=== PATIENT | male | born 1980 | race Two or more races ===

== ENCOUNTER 2017-01-15 05:18 | Emergency (ER) | payer SELFPAY ==
[2017-01-15 05:26] VITALS: BP 143/93; BMI 28.2
[2017-01-15] MEDS ORDERED: DUONEB 0.5 MG/3 MG NEB ONE (05:43)
[2017-01-15] MEDS ORDERED: DUONEB 0.5 MG/3 MG ONE (05:45)
--- NOTE | 2017-01-15 05:46 | DR.GENAD ---
HPI - PCP Primary Care Physician: NFD - Complaint/Symptoms Chief Complaint Doctors Comments: chest pain, SOB, cough for 3-4 days Chief Complaint:: COUGH AND DIFFICULTY BREATHING - Nurses notes reviewed Nurses Notes Review: Yes - Source History Provided: Patient, Other - Mode of Arrival Mode of Arrival: Ambulatory - Timing Onset of Chief Complaint: 01/08/17 Came on: Gradually - Duration Duration: Intermittent Duration: Days - Severity Severity: Moderate - Associated Signs and Symptoms Associated Signs and Symptoms: cough, SOB, feeling weak and achy PMH - PMH Past Medical History: No Past Surgical History: No - Family History History of Family Medical Conditions: No - Social History Does patient currently use any type of tobacco product: No Have you used tobacco products in the last 12 months: No Type of Tobacco Use: None Does any household member use tobacco: No Alcohol Use: Occasionally Do you use any recreational Drugs:: No Lives With: Family Lives Where: Home - infectious screening In the last 2 months have you had wt loss of >10#?: NO Have you had fever, night sweats or hemotysis?: No Have you traveled outside the country in the last 6 months?: No Isolation: Standard ROS - Review of Systems Constitutional: Weakness Eyes: No Symptoms Reported ENTM: No Symptoms Reported Respiratoy: Non-Productive Cough, Moist Cough, Short of Breath Cardiovascular: Chest Pain Gastrointestinal/Abdominal: No Symptoms Reported Genitourinary: No Symptoms Reported Neurological: No Symptoms Reported Musculoskeletal: No Symptoms Reported, Right, Chest wall Integumentary: No Symptoms Reported Hematologic/Lymphatic: No Symptoms Reported Endocrine: No Symptoms Reported Psychiatric: No Symptoms Reported All Other Systems: Reviewed and Negative PE - Vital Signs Vitals: Temperature 98 F Pulse Rate 93 Respiratory Rate 18 Blood Pressure 143/93 O2 Sat by Pulse Oximetry 96 - General Limitations: No Limitations General Appearance: Alert, In No Apparent Distress - Head Head Exam: Normal Inspection - ENT ENT Exam: Mucous Membranes Moist Nose Exam: Normal Nose Exam Mouth Exam: Normal Inspection Throat Exam: Normal Inspection - Neck Neck Exam: Normal Inspection - Chest Chest Inspection: Symmetric Chest Wall Rise - Respiratory Respiratory Exam: Left Rhonchi, Left Decreased Breath Sounds, Lower Rhonchi, Lower Decreased Breath Sounds - Cardiovascular Cardiovascular Exam: Regular Rate, Normal Rhythm, Normal Heart Sounds - Abdominal Exam Abdominal Exam: Normal Inspection, Normal Bowel Sounds, Soft - Extremities Extremities Exam: Normal Inspection, Full ROM - Back Back Exam: Normal Inspection, Full ROM - Neurologic Neurological Exam: Alert, Oriented X3, CN II-XII Intact - Psychiatric Psychiatric Exam: Normal Affect, Normal Mood - Skin Skin Exam: Warm, Dry, Intact, Normal Color - Diagnosis Discharge Problem: Bronchitis, Pleurisy - Discharge Plan Disposition: HOME, SELF-CARE Condition: Stable - Follow ups/Referrals Follow ups/Referrals: NFD,None [Primary Care Provider] - 3 days - Instructions
[2017-01-15] MEDS ORDERED: DECADRON INJ IM ONE (06:00)
[2017-01-15] MEDS ORDERED: ZITHROMAX TAB 250 MG PO ONE ×2 (06:00→06:04)
[2017-01-15] MEDS ORDERED: TORADOL 60 MG VIAL IM ONE (06:02)
[2017-01-15] MEDS ORDERED: TORADOL 60 MG VIAL ONE (06:04)
[2017-01-15] MEDS ORDERED: DECADRON JET NEB NEB ONE (06:04)
[2017-01-15 06:20] LABS: BASOPHILS # (AUTO) 0.1 X10^3/uL (0.0-0.1); EOSINOPHILS # (AUTO) 0.7 x10^3/uL (0.0-0.2); EOSINOPHILS % (AUTO) 6.2 % (0.9-2.9); HEMATOCRIT 43.9 % (42.0-54.0); HEMOGLOBIN 15.5 g/dL (13.5-18.0); LYMPHOCYTES # (AUTO) 3.7 X10^3/uL (1.3-2.9); LYMPHOCYTES % (AUTO) 33.2 % (21.0-51.0); MEAN CORPUSCULAR HEMOGLOBIN 29.7 pg (27.0-34.0); MEAN CORPUSCULAR HGB CONC 35.2 g/dL (33.0-35.0); MEAN CORPUSCULAR VOLUME 84.3 fL (80.0-100.0); MEAN PLATELET VOLUME 8.7 fL (7.4-11.0); MONOCYTES # (AUTO) 0.6 x10^3/uL (0.3-0.8); MONOCYTES % (AUTO) 5.5 % (0.0-13.0); NEUTROPHILS % (AUTO) 54.1 % (42.0-75.0); PLATELET COUNT 191 X10^3/uL (150.0-450.0); RED BLOOD COUNT 5.21 X10^6/uL (4.7-6.0); RED CELL DISTRIBUTION WIDTH 12.4 % (11.6-16.5); WHITE BLOOD COUNT 11.1 X10^3/uL (3.6-10.0)
[2017-01-15 06:29] LABS: ALANINE AMINOTRANSFERASE 39 Units/L (12-78); ALBUMIN 3.6 g/dL (3.4-5.0); ALKALINE PHOSPHATASE 95 Units/L (46-116); ASPARTATE AMINO TRANSFERASE 24 Units/L (15-37); BLOOD UREA NITROGEN 17 mg/dL (7-18); CALCIUM 8.5 mg/dL (8.5-10.1); CARBON DIOXIDE 23.5 mmol/L (21-32); CHLORIDE 107 mmol/L (98-107); COR NA(FOR HYPERGLY) 143 mmol/L (136-145); CREATININE 1.04 mg/dL (0.70-1.30); GLUCOSE 113 mg/dL (65-99); SODIUM 143 mmol/L (136-145); TOTAL PROTEIN 7.4 g/dL (6.4-8.2); eGFR BLACK RACES > 60 (>60); eGFR NON BLACK RACES > 60 (>60)
--- NOTE | 2017-01-15 06:39 | RAD ---
EXAM: Chest X-ray INDICATION: Chest pain COMPARISION: No prior TECHNIQUE: PA and Lat, 2 view FINDINGS: The lungs are clear and the lung volumes are within normal limits. No pleural effusion or pneumothor ax. The cardiac silhouette and mediastinum are normal. The regional skeleton is intact. IMPRESSION: Normal Chest X-Ray Reported By:
== END 2017-01-15 06:45 | disposition home or self-care (01) ==
LOC: ER 05:18
DX: J40 Bronchitis, not specified as acute or chronic (principal); R09.1 Pleurisy
CPT/HCPCS: 36415; 71020; 80053; 85025; 93005; 93010; 94640; 96372; 99283; Q0144; J1885; J7620

== ENCOUNTER 2023-11-04 12:25 | Inpatient (IN) ==
--- NOTE | 2023-11-04 12:49 | DR.BITE ---
HPI Time Seen Time Seen by Provider: 11/04/23 12:49 PCP Primary Care Physician: Dr. Flores Complaint/Symptoms Chief Complaint Doctor Comments: 43-year-old male presents for evaluation. Received a bite, unknown source, to the right lower leg 3 days ago.. Startedd draining the next day. Saw his PCP yesterday, placed on double antibiotics. + worsenin today. + pain, RLE, does not radiate. + worse with palpation, movement. Nothing makes it better. + fever, chills, nausea today. No URI symptoms, no bowel/bladder issues. Not a diabetic. Chief Complaint:: Pt states the he was bit by something but unsure of what on Wednesday on the outside of the right knee. The area had a moderate amount of purulent drainage Wednesday and Wednesday but none since then. Pt has had progressively worsening swelling, redness and pain at the site. Pt has also had fever, chills, nausea with no vomiting. Self Treatment fo Chief Complaint: Pt was seen by pcp yesterday and started on Amoxicillin 454mg po daily x 10 days and Bactrim DS 1 tab po BID x 10 days. COVID-19 Coronavirus risk:travel/contact w/high risk person: No Has patient experienced Coronavirus symptoms: No Nurses notes reviewed Nurses Notes Review: Yes Source History Provided: Patient Mode of Arrival Mode of Arrival: Wheelchair Timing Onset of Chief Complaint: 11/01/23 PMH PMH Past Medical History: No Past Surgical History: Yes Surgical History: Appendectomy and Cholecystectomy Family History History of Family Medical Conditions: Yes Family Medical History: [place], Coronary Artery Disease and Hypertension Social History Does patient currently use any type of tobacco product: No Have you used tobacco products in the last 12 months: No Type of Tobacco Use: None Does any household member use tobacco: No Alcohol Use: None Do you use any recreational Drugs:: No Lives With: Spouse Lives Where: Home Travel Risk Coronavirus risk:travel/contact w/high risk person: No Has patient experienced Coronavirus symptoms: No Infectious screening In the last 2 months have you had wt loss of >10#?: NO Have you had fever, night sweats or hemotysis?: No Have you traveled outside the country in the last 6 months?: No Isolation: Standard ROS Review of Systems Constitutional: Chills and Fever Eyes: No Symptoms Reported ENTM: No Symptoms Reported Respiratoy: No Symptoms Reported Cardiovascular: No Symptoms Reported Gastrointestinal/Abdominal: No Symptoms Reported Genitourinary: No Symptoms Reported Neurological: No Symptoms Reported Musculoskeletal: See HPI Integumentary: See HPI All Other Systems: Reviewed and Negative PE Vital Signs Vital Signs: Temp Pulse Resp BP Pulse Ox O2 Del Method 11/04/23 14:15 88 27 H 98 11/04/23 14:00 89 24 97 11/04/23 13:45 92 H 27 H 97 11/04/23 13:30 100 H 30 H 97 11/04/23 13:15 103 H 22 98 11/04/23 13:00 142/83 11/04/23 13:00 112 H 23 97 11/04/23 12:56 110 H 29 H 97 11/04/23 13:04 18 11/04/23 12:34 99.1 F 123 H 20 152/126 94 L Room Air 11/03/23 10:22 122/77 Constitutional General Appearance: Alert and In No Apparent Distress Eyes Eye exam: PERRL and EOMI ENT ENT Exam: Mucous Membranes Moist Neck Neck Exam: Normal Inspection Respiratory Respiratory Exam: Normal Lung Sounds Bilat; negative Accessory Muscle Use or Respiratory Distress Cardiovascular Cardiovascular Exam: Regular Rate, Normal Rhythm and Normal Heart Sounds Abdominal Exam Abdominal Exam: Soft and Tenderness (from recent cholecystectomy) Neurologic Neurological Exam: Alert, Oriented X3 and CN II-XII Intact; negative Motor Sensory Deficit Skin Skin Exam: Warm and Dry Other Exam Other Exam: RLE - + 1 cm wound of center, + surrounding erythema, induration, tenderness. Distal NV intact. COURSE Treatment Treatment: 43-year-old male with a rapidly worsening infection of his right lower leg. Antibiotics since yesterday. Spiked a fever and chills today. Nothing draining from the wound at present, unable to get a wound culture. Workup initiated. Patient given IV fluids. Patient has an elevated white count, 18,400. The CMP is normal. Lactic acid slightly elevated at 2.1. Blood cultures were obtained. X-ray of the area done, no obvious foreign bodies, no gas formation. Patient was given IV Zosyn/vancomycin here. Discussed with his primary care provider, Dr. Flores, accepts admission. ROR Labs Reviewed Laboratory Results Reviewed?: Yes 11/04/23 13:00 11/04/23 13:00 Laboratory: WBC 18.4 X10^3/uL (3.6-10.0) H 11/04/23 13:00 RBC 4.96 X10^6/uL (4.7-6.0) 11/04/23 13:00 Hgb 14.2 g/dL (13.5-18.0) 11/04/23 13:00 Hct 41.5 % (42.0-54.0) L 11/04/23 13:00 MCV 83.7 fL (80.0-100.0) 11/04/23 13:00 MCH 28.6 pg (27.0-34.0) 11/04/23 13:00 MCHC 34.2 g/dL (33.0-35.0) 11/04/23 13:00 RDW 13.6 % (11.6-16.5) 11/04/23 13:00 Plt Count 189 X10^3/uL (150.0-450.0) 11/04/23 13:00 MPV 8.4 fL (7.4-11.0) 11/04/23 13:00 Neut % (Auto) 81.2 % (42.0-75.0) H 11/04/23 13:00 Lymph % (Auto) 10.4 % (21.0-51.0) L 11/04/23 13:00 Swisher % (Auto) 7.1 % (0.0-13.0) 11/04/23 13:00 Eos % (Auto) 0.8 % (0.9-2.9) L 11/04/23 13:00 Baso % (Auto) 0.5 % (0.2-1.0) 11/04/23 13:00 Neut # (Auto) 15.0 x10^3/uL (2.2-4.8) H 11/04/23 13:00 Lymph # (Auto) 1.9 X10^3/uL (1.3-2.9) 11/04/23 13:00 Swisher # (Auto) 1.3 x10^3/uL (0.3-0.8) H 11/04/23 13:00 Eos # (Auto) 0.1 x10^3/uL (0.0-0.2) 11/04/23 13:00 Baso # (Auto) 0.1 X10^3/uL (0.0-0.1) 11/04/23 13:00 Absolute Nucleated RBC 0.1 /100WBC 11/04/23 13:00 Sodium 137 mmol/L (136-145) 11/04/23 13:00 Corrected Sodium 138 mmol/L (136-145) 11/04/23 13:00 Potassium 3.6 mmol/L (3.5-5.1) 11/04/23 13:00 Chloride 102 mmol/L (98-107) 11/04/23 13:00 Carbon Dioxide 22.3 mmol/L (21-32) 11/04/23 13:00 BUN 13 mg/dL (7-18) 11/04/23 13:00 Creatinine 1.15 mg/dL (0.70-1.30) 11/04/23 13:00 Est GFR (MDRD) Af Amer > 60 (>60) 11/04/23 13:00 Est GFR (MDRD) Non-Af > 60 (>60) 11/04/23 13:00 Glucose 140 mg/dL (65-99) H 11/04/23 13:00 Lactic Acid 2.1 mmol/L (0.4-2.0) H 11/04/23 13:00 Calcium 8.7 mg/dL (8.5-10.1) 11/04/23 13:00 Corrected Calcium 9.4 mg/dL (8.5-10.1) 11/04/23 13:00 Total Bilirubin 0.70 mg/dL (0.2-1.0) 11/04/23 13:00 AST 10 Units/L (15-37) L 11/04/23 13:00 ALT 16 Units/L (12-78) 11/04/23 13:00 Alkaline Phosphatase 95 Units/L (46-116) 11/04/23 13:00 Total Protein 7.3 g/dL (6.4-8.2) 11/04/23 13:00 Albumin 3.1 g/dL (3.4-5.0) L 11/04/23 13:00 Globulin 4.2 g/dL (2.5-4.5) 11/04/23 13:00 Albumin/Globulin Ratio 0.7 Ratio (1.1-2.1) L 11/04/23 13:00 Evaded white count, 18,000 Opioid Opioid Risk Tool Age ([place] box if 16-45): Yes History of Preadolescent Sexual Abuse: No Total: 1 Total Score Risk Category: Low Risk Copyright: Sandeep DOE predicting aberrant behaviors Discharge Plan Diagnosis Discharge Problem: Cellulitis of right lower extremity Discharge Plan Patient Disposition: 09 ADMITTED INPATIENT Condition: Stable
[2023-11-04] MEDS: ZOFRAN INJ 4 MG VIAL IVP ONE (13:03)
[2023-11-04] MEDS: TORADOL 30 MG VIAL IVP ONE (13:04)
[2023-11-04] MEDS: NS 1,000 ML IV 1,000 ML IV ONE ×2 (13:07→14:06)
[2023-11-04 13:18] LABS: BASOPHILS # (AUTO) 0.1 X10^3/uL (0.0-0.1); BASOPHILS % (AUTO) 0.5 % (0.2-1.0); EOSINOPHILS # (AUTO) 0.1 x10^3/uL (0.0-0.2); EOSINOPHILS % (AUTO) 0.8 % (0.9-2.9); HEMATOCRIT 41.5 % (42.0-54.0); HEMOGLOBIN 14.2 g/dL (13.5-18.0); LYMPHOCYTES # (AUTO) 1.9 X10^3/uL (1.3-2.9); LYMPHOCYTES % (AUTO) 10.4 % (21.0-51.0); MEAN CORPUSCULAR HEMOGLOBIN 28.6 pg (27.0-34.0); MEAN CORPUSCULAR HGB CONC 34.2 g/dL (33.0-35.0); MEAN CORPUSCULAR VOLUME 83.7 fL (80.0-100.0); MEAN PLATELET VOLUME 8.4 fL (7.4-11.0); MONOCYTES # (AUTO) 1.3 x10^3/uL (0.3-0.8); MONOCYTES % (AUTO) 7.1 % (0.0-13.0); NEUTROPHILS % (AUTO) 81.2 % (42.0-75.0); PLATELET COUNT 189 X10^3/uL (150.0-450.0); RED BLOOD COUNT 4.96 X10^6/uL (4.7-6.0); RED CELL DISTRIBUTION WIDTH 13.6 % (11.6-16.5); WHITE BLOOD COUNT 18.4 X10^3/uL (3.6-10.0)
[2023-11-04 13:34] LABS: ALANINE AMINOTRANSFERASE 16 Units/L (12-78); ALBUMIN 3.1 g/dL (3.4-5.0); ALKALINE PHOSPHATASE 95 Units/L (46-116); ASPARTATE AMINO TRANSFERASE 10 Units/L (15-37); BLOOD UREA NITROGEN 13 mg/dL (7-18); CALCIUM 8.7 mg/dL (8.5-10.1); CARBON DIOXIDE 22.3 mmol/L (21-32); CHLORIDE 102 mmol/L (98-107); COR CA(FOR HYPOALB) 9.4 mg/dL (8.5-10.1); COR NA(FOR HYPERGLY) 138 mmol/L (136-145); CREATININE 1.15 mg/dL (0.70-1.30); GLUCOSE 140 mg/dL (65-99); POTASSIUM 3.6 mmol/L (3.5-5.1); SODIUM 137 mmol/L (136-145); TOTAL PROTEIN 7.3 g/dL (6.4-8.2); eGFR NON BLACK RACES > 60 (>60)
[2023-11-04] MEDS ORDERED: NS 250 ML IV 25 ML IV PRN ×2 (13:50→15:43)
[2023-11-04] MEDS: ZOSYN VIAL 3.375 GRAMS 3.375 G in NS 100 ML IV 100 ML IV SCH (14:01)
[2023-11-04] MEDS: VANCOMYCIN IV *PREMIX 1 G/200 ML BAG 1 G/200 ML PIGGYBACK IV SCH (14:03)
--- NOTE | 2023-11-04 14:53 | RAD ---
EXAM: LOWER LEG, TIB/FIB RIGHT HISTORY: sore/redness/swelling rt proximal lateral knee/lower leg x 3 days; COMPARISON: None available. FINDINGS: Soft tissue swelling. No radiopaque foreign body or soft tissue emphysema. No acute osseous finding . Arterial calcifications. IMPRESSION: Soft tissue swelling without acute osseous finding or radiopaque foreign body. THIS IS AN ELECTRONICALLY VERIFIED FINAL REPORT 11/04/2023 2:49 PM - Electronically signed by Nabeel Palma MD
[2023-11-04] MEDS: VANCOMYCIN IV *PREMIX 1 G/200 ML BAG 1 G/200 ML PIGGYBACK IV ONE (15:59)
[2023-11-04 16:10] VITALS: BMI 33.7
[2023-11-04] MEDS: D5 1/2 NS 1,000 ML 1,000 ML IV SCH (16:47)
[2023-11-04] MEDS: K-DUR TAB 20 MEQ PO ONE (16:47)
[2023-11-04] MEDS: VANCOMYCIN IV *PREMIX 1.5 G/300 ML BAG 1.5 G/300 ML PIGGYBACK IV SCH (20:42)
[2023-11-05 06:16] LABS: BASOPHILS # (AUTO) 0.1 X10^3/uL (0.0-0.1); BASOPHILS % (AUTO) 0.4 % (0.2-1.0); EOSINOPHILS # (AUTO) 0.2 x10^3/uL (0.0-0.2); EOSINOPHILS % (AUTO) 1.7 % (0.9-2.9); HEMATOCRIT 38.1 % (42.0-54.0); HEMOGLOBIN 12.7 g/dL (13.5-18.0); LYMPHOCYTES # (AUTO) 1.8 X10^3/uL (1.3-2.9); LYMPHOCYTES % (AUTO) 13.2 % (21.0-51.0); MEAN CORPUSCULAR HEMOGLOBIN 28.3 pg (27.0-34.0); MEAN CORPUSCULAR HGB CONC 33.4 g/dL (33.0-35.0); MEAN CORPUSCULAR VOLUME 84.8 fL (80.0-100.0); MEAN PLATELET VOLUME 8.4 fL (7.4-11.0); NEUTROPHILS # (AUTO) 10.6 x10^3/uL (2.2-4.8); NEUTROPHILS % (AUTO) 77.7 % (42.0-75.0); PLATELET COUNT 163 X10^3/uL (150.0-450.0); RED BLOOD COUNT 4.49 X10^6/uL (4.7-6.0); RED CELL DISTRIBUTION WIDTH 13.5 % (11.6-16.5); WHITE BLOOD COUNT 13.6 X10^3/uL (3.6-10.0)
[2023-11-05 06:32] LABS: ALANINE AMINOTRANSFERASE 16 Units/L (12-78); ALBUMIN 2.5 g/dL (3.4-5.0); ALKALINE PHOSPHATASE 78 Units/L (46-116); ASPARTATE AMINO TRANSFERASE 12 Units/L (15-37); BLOOD UREA NITROGEN 8 mg/dL (7-18); CARBON DIOXIDE 20.8 mmol/L (21-32); CHLORIDE 107 mmol/L (98-107); COR CA(FOR HYPOALB) 9.2 mg/dL (8.5-10.1); GLUCOSE 110 mg/dL (65-99); MAGNESIUM 2.2 mg/dL (2.0-2.9); POTASSIUM 4.1 mmol/L (3.5-5.1); SODIUM 139 mmol/L (136-145); TOTAL PROTEIN 6.2 g/dL (6.4-8.2); eGFR NON BLACK RACES > 60 (>60)
[2023-11-05] MEDS: VANCOMYCIN HCL IV ONE (07:55)
[2023-11-05] MEDS: ZOSYN VIAL 3.375 GRAMS 3.375 G in NS 100 ML IV 100 ML IV SCH (07:57)
[2023-11-05] MEDS: VANCOMYCIN IV *PREMIX 1 G/200 ML BAG 1 G/200 ML PIGGYBACK IV SCH (07:58)
[2023-11-05] MEDS: CONSULT PHARMACY - POTASSIUM & MAGNESIUM XX SCH (07:59)
[2023-11-05] MEDS: TORADOL TAB PO PRN (08:38)
--- NOTE | 2023-11-05 12:57 | DR.PROGNOT ---
HOSPITAL PROGRESS NOTE Progress Note for Day of: Progress Note Date: 11/05/23 Chief Complaint Chief Complaint: Still complaining of pain right knee, mild drainage. Initial culture report showed gram-positive cocci coag positive. Having low-grade fever. White count is down 13,000 Past Medical Family Social History Past Med/Fam/Surg Hx: No changes since H&P Allergies: Allergies No Known Drug Allergies Allergy (Verified 11/03/23 10:24) Vital Signs Vital Signs: Vital Signs Temperature 98.4 F Temperature 98.3 F Pulse Rate [Left Brachial] 76 Pulse Rate [Left Brachial] 91 Respiratory Rate 18 Respiratory Rate 20 Respiratory Rate 20 Respiratory Rate 18 Blood Pressure [Left Arm] 112/59 Blood Pressure [Left Arm] 124/71 O2 Sat by Pulse Oximetry 98 O2 Sat by Pulse Oximetry 97 Physical Exam Oriented: Normal Eyes: Normal Throat: Normal Cardiovascular: Normal Skin: Other (Cellulitis of the right knee area is less today but still extending about 8 cm from the lateral aspect of the knee. No necrosis or further abscess formation.) Speech Pattern: Clear and Appropriate Laboratory and Diagnostics 11/05/23 06:02 11/05/23 06:02 Labs: 11/04/23 17:10 Knee - Right Wound Gram Stain - Final 11/04/23 17:10 Knee - Right Wound Culture - Preliminary Laboratory WBC 13.6 X10^3/uL (3.6-10.0) H 11/05/23 06:02 RBC 4.49 X10^6/uL (4.7-6.0) L 11/05/23 06:02 Hgb 12.7 g/dL (13.5-18.0) L 11/05/23 06:02 Hct 38.1 % (42.0-54.0) L 11/05/23 06:02 MCV 84.8 fL (80.0-100.0) 11/05/23 06:02 MCH 28.3 pg (27.0-34.0) 11/05/23 06:02 MCHC 33.4 g/dL (33.0-35.0) 11/05/23 06:02 RDW 13.5 % (11.6-16.5) 11/05/23 06:02 Plt Count 163 X10^3/uL (150.0-450.0) 11/05/23 06:02 MPV 8.4 fL (7.4-11.0) 11/05/23 06:02 Neut % (Auto) 77.7 % (42.0-75.0) H 11/05/23 06:02 Lymph % (Auto) 13.2 % (21.0-51.0) L 11/05/23 06:02 Ellis % (Auto) 7.0 % (0.0-13.0) 11/05/23 06:02 Eos % (Auto) 1.7 % (0.9-2.9) 11/05/23 06:02 Baso % (Auto) 0.4 % (0.2-1.0) 11/05/23 06:02 Neut # (Auto) 10.6 x10^3/uL (2.2-4.8) H 11/05/23 06:02 Lymph # (Auto) 1.8 X10^3/uL (1.3-2.9) 11/05/23 06:02 Ellis # (Auto) 1.0 x10^3/uL (0.3-0.8) H 11/05/23 06:02 Eos # (Auto) 0.2 x10^3/uL (0.0-0.2) 11/05/23 06:02 Baso # (Auto) 0.1 X10^3/uL (0.0-0.1) 11/05/23 06:02 Absolute Nucleated RBC 0.0 /100WBC 11/05/23 06:02 Sodium 139 mmol/L (136-145) 11/05/23 06:02 Corrected Sodium TNP 11/05/23 06:02 Potassium 4.1 mmol/L (3.5-5.1) 11/05/23 06:02 Chloride 107 mmol/L (98-107) 11/05/23 06:02 Carbon Dioxide 20.8 mmol/L (21-32) L 11/05/23 06:02 BUN 8 mg/dL (7-18) 11/05/23 06:02 Creatinine 0.90 mg/dL (0.70-1.30) 11/05/23 06:02 Est GFR (MDRD) Af Amer > 60 (>60) 11/05/23 06:02 Est GFR (MDRD) Non-Af > 60 (>60) 11/05/23 06:02 Glucose 110 mg/dL (65-99) H 11/05/23 06:02 Lactic Acid 1.5 mmol/L (0.4-2.0) 11/04/23 15:00 Calcium 8.0 mg/dL (8.5-10.1) L 11/05/23 06:02 Corrected Calcium 9.2 mg/dL (8.5-10.1) 11/05/23 06:02 Magnesium 2.2 mg/dL (2.0-2.9) 11/05/23 06:02 Total Bilirubin 0.50 mg/dL (0.2-1.0) 11/05/23 06:02 AST 12 Units/L (15-37) L 11/05/23 06:02 ALT 16 Units/L (12-78) 11/05/23 06:02 Alkaline Phosphatase 78 Units/L (46-116) 11/05/23 06:02 Total Protein 6.2 g/dL (6.4-8.2) L 11/05/23 06:02 Albumin 2.5 g/dL (3.4-5.0) L 11/05/23 06:02 Globulin 3.7 g/dL (2.5-4.5) 11/05/23 06:02 Albumin/Globulin Ratio 0.7 Ratio (1.1-2.1) L 11/05/23 06:02 Assessment and Plan 1: Cellulitis left knee with abscess formation status post debridement. Cultures showed staph coag positive. Same IV vancomycin till final culture report is back. Problem Patient Problems: Patient Problems Cellulitis of right lower extremity (Acute) L03.115
[2023-11-05] MEDS: TORADOL TAB PO SCH (14:18)
[2023-11-05] MEDS ORDERED: BACTROBAN TOPICAL OINT ONE (17:10)
[2023-11-05] MEDS: BACTROBAN TOPICAL OINT TOP SCH (18:15)
[2023-11-05] MEDS: PHARMACY COMMENT IV ONE (20:48)
[2023-11-05 21:06] LABS: CREATININE 0.94 mg/dL (0.70-1.30); VANCOMYCIN,TROUGH 7.4 ug/mL (15-20)
[2023-11-05] MEDS: VANCOMYCIN IV *PREMIX 1.75 G/350 ML BAG 1.75 G/350 ML PIGGYBACK IV SCH (21:45)
[2023-11-06 05:20] LABS: BASOPHILS % (AUTO) 0.4 % (0.2-1.0); EOSINOPHILS # (AUTO) 0.3 x10^3/uL (0.0-0.2); EOSINOPHILS % (AUTO) 3.6 % (0.9-2.9); HEMATOCRIT 36.2 % (42.0-54.0); HEMOGLOBIN 12.2 g/dL (13.5-18.0); LYMPHOCYTES # (AUTO) 1.5 X10^3/uL (1.3-2.9); LYMPHOCYTES % (AUTO) 18.3 % (21.0-51.0); MEAN CORPUSCULAR HEMOGLOBIN 28.5 pg (27.0-34.0); MEAN CORPUSCULAR HGB CONC 33.6 g/dL (33.0-35.0); MEAN CORPUSCULAR VOLUME 84.6 fL (80.0-100.0); MEAN PLATELET VOLUME 8.7 fL (7.4-11.0); MONOCYTES # (AUTO) 0.6 x10^3/uL (0.3-0.8); MONOCYTES % (AUTO) 6.9 % (0.0-13.0); NEUTROPHILS # (AUTO) 5.9 x10^3/uL (2.2-4.8); NEUTROPHILS % (AUTO) 70.8 % (42.0-75.0); PLATELET COUNT 180 X10^3/uL (150.0-450.0); RED BLOOD COUNT 4.27 X10^6/uL (4.7-6.0); RED CELL DISTRIBUTION WIDTH 13.6 % (11.6-16.5); WHITE BLOOD COUNT 8.4 X10^3/uL (3.6-10.0)
[2023-11-06 05:29] LABS: ALANINE AMINOTRANSFERASE 32 Units/L (12-78); ALBUMIN 2.3 g/dL (3.4-5.0); ALKALINE PHOSPHATASE 81 Units/L (46-116); ASPARTATE AMINO TRANSFERASE 21 Units/L (15-37); BLOOD UREA NITROGEN 8 mg/dL (7-18); CARBON DIOXIDE 22.6 mmol/L (21-32); CHLORIDE 110 mmol/L (98-107); COR CA(FOR HYPOALB) 9.4 mg/dL (8.5-10.1); COR NA(FOR HYPERGLY) 142 mmol/L (136-145); CREATININE 0.84 mg/dL (0.70-1.30); GLUCOSE 116 mg/dL (65-99); POTASSIUM 3.9 mmol/L (3.5-5.1); SODIUM 142 mmol/L (136-145); TOTAL PROTEIN 5.9 g/dL (6.4-8.2); eGFR NON BLACK RACES > 60 (>60)
--- NOTE | 2023-11-06 08:32 | DR.H&P ---
H&P History & Physical for Day of: H&P Date: 11/04/23 Chief Complaint Chief Complaint: right leg pain, redness, and swelling Allergies Allergies Allergy/AdvReac Type Severity Reaction Status Date / Time No Known Drug Allergies Allergy Verified 11/03/23 10:24 History of Present Illness History of Present Illness: Pt is a 43 year old male presenting with worsening cellulitis of the right lower leg after receiving a bite from an unknown insect. Pt was bitten over a week ago and reports gradual worsening of redness and swelling. He states that area of bite has some discharge. He failed outpatient treatment. Denies fevers, but reports feeling some chills. Labs/imaging: Wbc 13.6, Hgb 12.7, Plt 163, Na 139, K 4.1, Creatinine 0.90, glucose 110, Wound/blood culture pending. XR tib/fib was obtained that revealed: Soft tissue swelling without acute osseous finding or radiopaque foreign body. Pt was admitted for cellulitis and abscess. He was started on IV antibiotics Vancomycin and Zosyn. IVF, General surgery was consulted-Dr Monet, follow recommendations. Otherwise, continue current treatment. Continue to monitor and follow up labs/imaging. Past Surgical History Surgical History: Appendectomy and Cholecystectomy Family History Family Medical History: [place] and Hypertension Social History Does patient currently use any type of tobacco product: No Have you used tobacco products in the last 12 months: No Type of Tobacco Use: None Does any household member use tobacco: No Alcohol Use: None Drug Use: None Medications Home Medications: Home Medications Medication Instructions Recorded Confirmed Type amoxicillin 400 mg/5 mL oral 454 mg PO DAILY 11/04/23 11/04/23 History suspension Labs 11/06/23 04:10 11/06/23 04:10 Labs: 11/04/23 17:10 Knee - Right Wound Gram Stain - Final 11/04/23 17:10 Knee - Right Wound Culture - Preliminary Laboratory WBC 8.4 X10^3/uL (3.6-10.0) 11/06/23 04:10 RBC 4.27 X10^6/uL (4.7-6.0) L 11/06/23 04:10 Hgb 12.2 g/dL (13.5-18.0) L 11/06/23 04:10 Hct 36.2 % (42.0-54.0) L 11/06/23 04:10 MCV 84.6 fL (80.0-100.0) 11/06/23 04:10 MCH 28.5 pg (27.0-34.0) 11/06/23 04:10 MCHC 33.6 g/dL (33.0-35.0) 11/06/23 04:10 RDW 13.6 % (11.6-16.5) 11/06/23 04:10 Plt Count 180 X10^3/uL (150.0-450.0) 11/06/23 04:10 MPV 8.7 fL (7.4-11.0) 11/06/23 04:10 Neut % (Auto) 70.8 % (42.0-75.0) 11/06/23 04:10 Lymph % (Auto) 18.3 % (21.0-51.0) L 11/06/23 04:10 Carter % (Auto) 6.9 % (0.0-13.0) 11/06/23 04:10 Eos % (Auto) 3.6 % (0.9-2.9) H 11/06/23 04:10 Baso % (Auto) 0.4 % (0.2-1.0) 11/06/23 04:10 Neut # (Auto) 5.9 x10^3/uL (2.2-4.8) H 11/06/23 04:10 Lymph # (Auto) 1.5 X10^3/uL (1.3-2.9) 11/06/23 04:10 Carter # (Auto) 0.6 x10^3/uL (0.3-0.8) 11/06/23 04:10 Eos # (Auto) 0.3 x10^3/uL (0.0-0.2) H 11/06/23 04:10 Baso # (Auto) 0.0 X10^3/uL (0.0-0.1) 11/06/23 04:10 Absolute Nucleated RBC 0.0 /100WBC 11/06/23 04:10 Sodium 142 mmol/L (136-145) 11/06/23 04:10 Corrected Sodium 142 mmol/L (136-145) 11/06/23 04:10 Potassium 3.9 mmol/L (3.5-5.1) 11/06/23 04:10 Chloride 110 mmol/L (98-107) H 11/06/23 04:10 Carbon Dioxide 22.6 mmol/L (21-32) 11/06/23 04:10 BUN 8 mg/dL (7-18) 11/06/23 04:10 Creatinine 0.84 mg/dL (0.70-1.30) 11/06/23 04:10 Est GFR (MDRD) Af Amer > 60 (>60) 11/06/23 04:10 Est GFR (MDRD) Non-Af > 60 (>60) 11/06/23 04:10 Glucose 116 mg/dL (65-99) H 11/06/23 04:10 Lactic Acid 1.5 mmol/L (0.4-2.0) 11/04/23 15:00 Calcium 8.0 mg/dL (8.5-10.1) L 11/06/23 04:10 Corrected Calcium 9.4 mg/dL (8.5-10.1) 11/06/23 04:10 Magnesium 2.2 mg/dL (2.0-2.9) 11/05/23 06:02 Total Bilirubin 0.30 mg/dL (0.2-1.0) 11/06/23 04:10 AST 21 Units/L (15-37) 11/06/23 04:10 ALT 32 Units/L (12-78) 11/06/23 04:10 Alkaline Phosphatase 81 Units/L (46-116) 11/06/23 04:10 Total Protein 5.9 g/dL (6.4-8.2) L 11/06/23 04:10 Albumin 2.3 g/dL (3.4-5.0) L 11/06/23 04:10 Globulin 3.6 g/dL (2.5-4.5) 11/06/23 04:10 Albumin/Globulin Ratio 0.6 Ratio (1.1-2.1) L 11/06/23 04:10 Vancomycin Trough 7.4 ug/mL (15-20) L 11/05/23 20:38 Review of Systems Constitutional: Chills Eyes: No Symptoms Reported ENT: No Symptoms Reported Respiratory: No Symptoms Reported Cardiovascular: No Symptoms Reported Gastrointestinal: No Symptoms Reported Genitourinary: No Symptoms Reported Musculoskeletal: No Symptoms Reported Skin: Other (erythema and edema RLE) Neurological: No Symptoms Reported Physical Exam Vital Signs: Vital Signs Temperature 97.7 F Temperature 97.6 F Pulse Rate [Left Brachial] 88 Pulse Rate [Left Brachial] 73 Respiratory Rate 20 Respiratory Rate 20 Respiratory Rate 20 Respiratory Rate 20 Blood Pressure [Left Arm] 114/71 Blood Pressure [Left Arm] 113/55 O2 Sat by Pulse Oximetry 98 O2 Sat by Pulse Oximetry 100 Oriented: Normal Eyes: Normal Ear: Normal Nose: Normal Throat: Normal Respiratory: Clear Throughout Cardiovascular: Normal : Normal Auscultation: Bowel Sounds: Normal Palpation: Normal Tenderness: Normal Skin: Other (erythema and edema of RLE) Musculoskeletal: Normal Psychiatric: Normal Mood Description: Calm and Appropriate Affect: Normal Speech Pattern: Clear and Appropriate Assessment/Plan (1) Cellulitis of right lower extremity: Status: Acute Plan: IV antibiotics Review H&P Reviewed: Yes Patient was examined?: Yes
--- NOTE | 2023-11-06 08:38 | PCM.PROG ---
Progress Note Progress Note for Day of Date of Exam: 11/05/23 Subjective Subjective: Pt is a 43 year old male admitted for cellulitis of the right lower leg after receiving a bite from an unknown insect. This morning he reports some improvement in his redness and swelling. No acute events overnight. Labs/imaging: Wbc 13.6, Hgb 12.7, Plt 163, Na 139, K 4.1, Creatinine 0.90, g lucose 110, Wound culture prelim positive for coagulase positive staph. Blood culture pending. He is currently receiving IV antibiotics Vancomycin and Zosyn. IVF, General surgery was consulted-Dr Monet, follow recommendations. Otherwise, continue current treatment. Continue to monitor and follow up labs/imaging. Past Medical Family Social History Past Med/Fam/Surg Hx: No changes since H&P Allergies: Allergies No Known Drug Allergies Allergy (Verified 11/03/23 10:24) Review of Systems ROS changes noted: see HPI Vital Signs and I&O's Vital Signs: Vital Signs Temperature 97.7 F Temperature 97.6 F Pulse Rate [Left Brachial] 88 Pulse Rate [Left Brachial] 73 Respiratory Rate 20 Respiratory Rate 20 Respiratory Rate 20 Respiratory Rate 20 Blood Pressure [Left Arm] 114/71 Blood Pressure [Left Arm] 113/55 O2 Sat by Pulse Oximetry 98 O2 Sat by Pulse Oximetry 100 Intake and Output: Intake & Output 11/03/23 11/04/23 11/05/23 11/06/23 23:59 23:59 23:59 23:59 Intake Total 2215 / 2215 2690 / 2690 Balance 2215 / 2215 2690 / 2690 Physical Exam Oriented: Normal Eyes: Normal Ear: Normal Nose: Normal Throat: Normal Respiratory: Normal Cardiovascular: Normal : Normal Auscultation: Bowel Sounds: Normal Tenderness: Normal Skin: Other (erythema and edema of RLE) Musculoskeletal: Normal Psychiatric: Normal Mood Description: Calm and Appropriate Affect: Normal Speech Pattern: Clear and Appropriate Laboratory and Diagnostics 11/06/23 04:10 11/06/23 04:10 Labs: 11/04/23 17:10 Knee - Right Wound Gram Stain - Final 11/04/23 17:10 Knee - Right Wound Culture - Preliminary Laboratory WBC 8.4 X10^3/uL (3.6-10.0) 11/06/23 04:10 RBC 4.27 X10^6/uL (4.7-6.0) L 11/06/23 04:10 Hgb 12.2 g/dL (13.5-18.0) L 11/06/23 04:10 Hct 36.2 % (42.0-54.0) L 11/06/23 04:10 MCV 84.6 fL (80.0-100.0) 11/06/23 04:10 MCH 28.5 pg (27.0-34.0) 11/06/23 04:10 MCHC 33.6 g/dL (33.0-35.0) 11/06/23 04:10 RDW 13.6 % (11.6-16.5) 11/06/23 04:10 Plt Count 180 X10^3/uL (150.0-450.0) 11/06/23 04:10 MPV 8.7 fL (7.4-11.0) 11/06/23 04:10 Neut % (Auto) 70.8 % (42.0-75.0) 11/06/23 04:10 Lymph % (Auto) 18.3 % (21.0-51.0) L 11/06/23 04:10 Walton % (Auto) 6.9 % (0.0-13.0) 11/06/23 04:10 Eos % (Auto) 3.6 % (0.9-2.9) H 11/06/23 04:10 Baso % (Auto) 0.4 % (0.2-1.0) 11/06/23 04:10 Neut # (Auto) 5.9 x10^3/uL (2.2-4.8) H 11/06/23 04:10 Lymph # (Auto) 1.5 X10^3/uL (1.3-2.9) 11/06/23 04:10 Walton # (Auto) 0.6 x10^3/uL (0.3-0.8) 11/06/23 04:10 Eos # (Auto) 0.3 x10^3/uL (0.0-0.2) H 11/06/23 04:10 Baso # (Auto) 0.0 X10^3/uL (0.0-0.1) 11/06/23 04:10 Absolute Nucleated RBC 0.0 /100WBC 11/06/23 04:10 Sodium 142 mmol/L (136-145) 11/06/23 04:10 Corrected Sodium 142 mmol/L (136-145) 11/06/23 04:10 Potassium 3.9 mmol/L (3.5-5.1) 11/06/23 04:10 Chloride 110 mmol/L (98-107) H 11/06/23 04:10 Carbon Dioxide 22.6 mmol/L (21-32) 11/06/23 04:10 BUN 8 mg/dL (7-18) 11/06/23 04:10 Creatinine 0.84 mg/dL (0.70-1.30) 11/06/23 04:10 Est GFR (MDRD) Af Amer > 60 (>60) 11/06/23 04:10 Est GFR (MDRD) Non-Af > 60 (>60) 11/06/23 04:10 Glucose 116 mg/dL (65-99) H 11/06/23 04:10 Lactic Acid 1.5 mmol/L (0.4-2.0) 11/04/23 15:00 Calcium 8.0 mg/dL (8.5-10.1) L 11/06/23 04:10 Corrected Calcium 9.4 mg/dL (8.5-10.1) 11/06/23 04:10 Magnesium 2.2 mg/dL (2.0-2.9) 11/05/23 06:02 Total Bilirubin 0.30 mg/dL (0.2-1.0) 11/06/23 04:10 AST 21 Units/L (15-37) 11/06/23 04:10 ALT 32 Units/L (12-78) 11/06/23 04:10 Alkaline Phosphatase 81 Units/L (46-116) 11/06/23 04:10 Total Protein 5.9 g/dL (6.4-8.2) L 11/06/23 04:10 Albumin 2.3 g/dL (3.4-5.0) L 11/06/23 04:10 Globulin 3.6 g/dL (2.5-4.5) 11/06/23 04:10 Albumin/Globulin Ratio 0.6 Ratio (1.1-2.1) L 11/06/23 04:10 Vancomycin Trough 7.4 ug/mL (15-20) L 11/05/23 20:38 Plan (1) Cellulitis of right lower extremity: Status: Acute Plan: IV antibiotics
--- NOTE | 2023-11-06 10:46 | DR.PROGNOT ---
HOSPITAL PROGRESS NOTE Progress Note for Day of: Progress Note Date: 11/06/23 Chief Complaint Chief Complaint: less pain right knee, moderate drainage. culture report showed MRSA, on Vancomycin. Having low-grade fever. White count is 8.4.. Past Medical Family Social History Past Med/Fam/Surg Hx: No changes since H&P Allergies: Allergies No Known Drug Allergies Allergy (Verified 11/03/23 10:24) Review Of Systems Changes in ROS: see HPI Vital Signs Vital Signs: Vital Signs Temperature 97.7 F Temperature 97.6 F Pulse Rate [Left Brachial] 88 Pulse Rate [Left Brachial] 73 Respiratory Rate 20 Respiratory Rate 20 Respiratory Rate 20 Respiratory Rate 20 Respiratory Rate 20 Blood Pressure [Left Arm] 114/71 Blood Pressure [Left Arm] 113/55 O2 Sat by Pulse Oximetry 98 O2 Sat by Pulse Oximetry 100 Physical Exam Oriented: Normal Eyes: Normal Ear: Normal Nose: Normal Throat: Normal Respiratory: Normal Cardiovascular: Normal : Normal GI:Auscultation: Normal GI:Palpation: Normal GI: Tenderness: Normal Skin: Other (still having purulent drainage and erythema RT knee ..normal ROM RT knee .) Musculoskeletal: Normal Psychiatric: Normal Mood Description: Calm and Appropriate Affect: Normal Speech Pattern: Clear and Appropriate Laboratory and Diagnostics 11/06/23 04:10 11/06/23 04:10 Labs: 11/04/23 13:10 Blood Blood Culture - Preliminary 11/04/23 13:00 Blood Blood Culture - Preliminary 11/04/23 17:10 Knee - Right Wound Gram Stain - Final 11/04/23 17:10 Knee - Right Wound Culture - Preliminary Methicillin Resis Staph Aureus Laboratory WBC 8.4 X10^3/uL (3.6-10.0) 11/06/23 04:10 RBC 4.27 X10^6/uL (4.7-6.0) L 11/06/23 04:10 Hgb 12.2 g/dL (13.5-18.0) L 11/06/23 04:10 Hct 36.2 % (42.0-54.0) L 11/06/23 04:10 MCV 84.6 fL (80.0-100.0) 11/06/23 04:10 MCH 28.5 pg (27.0-34.0) 11/06/23 04:10 MCHC 33.6 g/dL (33.0-35.0) 11/06/23 04:10 RDW 13.6 % (11.6-16.5) 11/06/23 04:10 Plt Count 180 X10^3/uL (150.0-450.0) 11/06/23 04:10 MPV 8.7 fL (7.4-11.0) 11/06/23 04:10 Neut % (Auto) 70.8 % (42.0-75.0) 11/06/23 04:10 Lymph % (Auto) 18.3 % (21.0-51.0) L 11/06/23 04:10 [place] % (Auto) 6.9 % (0.0-13.0) 11/06/23 04:10 Eos % (Auto) 3.6 % (0.9-2.9) H 11/06/23 04:10 Baso % (Auto) 0.4 % (0.2-1.0) 11/06/23 04:10 Neut # (Auto) 5.9 x10^3/uL (2.2-4.8) H 11/06/23 04:10 Lymph # (Auto) 1.5 X10^3/uL (1.3-2.9) 11/06/23 04:10 [place] # (Auto) 0.6 x10^3/uL (0.3-0.8) 11/06/23 04:10 Eos # (Auto) 0.3 x10^3/uL (0.0-0.2) H 11/06/23 04:10 Baso # (Auto) 0.0 X10^3/uL (0.0-0.1) 11/06/23 04:10 Absolute Nucleated RBC 0.0 /100WBC 11/06/23 04:10 Sodium 142 mmol/L (136-145) 11/06/23 04:10 Corrected Sodium 142 mmol/L (136-145) 11/06/23 04:10 Potassium 3.9 mmol/L (3.5-5.1) 11/06/23 04:10 Chloride 110 mmol/L (98-107) H 11/06/23 04:10 Carbon Dioxide 22.6 mmol/L (21-32) 11/06/23 04:10 BUN 8 mg/dL (7-18) 11/06/23 04:10 Creatinine 0.84 mg/dL (0.70-1.30) 11/06/23 04:10 Est GFR (MDRD) Af Amer > 60 (>60) 11/06/23 04:10 Est GFR (MDRD) Non-Af > 60 (>60) 11/06/23 04:10 Glucose 116 mg/dL (65-99) H 11/06/23 04:10 Lactic Acid 1.5 mmol/L (0.4-2.0) 11/04/23 15:00 Calcium 8.0 mg/dL (8.5-10.1) L 11/06/23 04:10 Corrected Calcium 9.4 mg/dL (8.5-10.1) 11/06/23 04:10 Magnesium 2.2 mg/dL (2.0-2.9) 11/05/23 06:02 Total Bilirubin 0.30 mg/dL (0.2-1.0) 11/06/23 04:10 AST 21 Units/L (15-37) 11/06/23 04:10 ALT 32 Units/L (12-78) 11/06/23 04:10 Alkaline Phosphatase 81 Units/L (46-116) 11/06/23 04:10 Total Protein 5.9 g/dL (6.4-8.2) L 11/06/23 04:10 Albumin 2.3 g/dL (3.4-5.0) L 11/06/23 04:10 Globulin 3.6 g/dL (2.5-4.5) 11/06/23 04:10 Albumin/Globulin Ratio 0.6 Ratio (1.1-2.1) L 11/06/23 04:10 Vancomycin Trough 7.4 ug/mL (15-20) L 11/05/23 20:38 Assessment and Plan 1: Cellulitis RT knee with abscess formation status post debridement. Cultures showed MRSA. Same IV vancomycin and local care .. Problem Patient Problems: Patient Problems Cellulitis of right lower extremity (Acute) L03.115
--- NOTE | 2023-11-06 12:07 | PCM.PROG ---
Progress Note Progress Note for Day of Date of Exam: 11/06/23 Subjective Subjective: Patient seen at bedside, no acute events overnight. He is feeling better. He is admitted for right knee abscess/cellulitis. Dr Qureshi did I&D yesterday. His wound Cx is growing MRSA. He is currently on Vancomycin and Zosyn. His knee swelling and redness has improved, still having drainage. Labs/imaging reviewed -WBC 8.4 glucose 116 Plan: Will DC zosyn, continue Vancomycin. Continue pain control. Follow surgery recommendations, dressing changes as per surgery. Keep leg elevated. Monitor AM labs/imaging. Past Medical Family Social History Past Med/Fam/Surg Hx: No changes since H&P Allergies: Allergies No Known Drug Allergies Allergy (Verified 11/03/23 10:24) Vital Signs and I&O's Vital Signs: Vital Signs Temperature 97.7 F Pulse Rate [Left Brachial] 88 Respiratory Rate 20 Respiratory Rate 20 Respiratory Rate 20 Blood Pressure [Left Arm] 114/71 O2 Sat by Pulse Oximetry 98 Intake and Output: Intake & Output 11/03/23 11/04/23 11/05/23 11/06/23 23:59 23:59 23:59 23:59 Intake Total 2215 / 2215 2690 / 2690 Balance 2215 / 2215 2690 / 2690 Physical Exam Oriented: Normal Eyes: Normal Ear: Normal Nose: Normal Throat: Normal Respiratory: Normal Cardiovascular: Normal Auscultation: Bowel Sounds: Normal Tenderness: Normal Skin: Other (still having purulent drainage and erythema RT knee ..normal ROM RT knee .) Musculoskeletal: Normal Psychiatric: Normal Mood Description: Calm and Appropriate Affect: Normal Speech Pattern: Clear and Appropriate Laboratory and Diagnostics 11/06/23 04:10 11/06/23 04:10 Labs: 11/04/23 13:10 Blood Blood Culture - Preliminary 11/04/23 13:00 Blood Blood Culture - Preliminary 11/04/23 17:10 Knee - Right Wound Gram Stain - Final 11/04/23 17:10 Knee - Right Wound Culture - Preliminary Methicillin Resis Staph Aureus Laboratory WBC 8.4 X10^3/uL (3.6-10.0) 11/06/23 04:10 RBC 4.27 X10^6/uL (4.7-6.0) L 11/06/23 04:10 Hgb 12.2 g/dL (13.5-18.0) L 11/06/23 04:10 Hct 36.2 % (42.0-54.0) L 11/06/23 04:10 MCV 84.6 fL (80.0-100.0) 11/06/23 04:10 MCH 28.5 pg (27.0-34.0) 11/06/23 04:10 MCHC 33.6 g/dL (33.0-35.0) 11/06/23 04:10 RDW 13.6 % (11.6-16.5) 11/06/23 04:10 Plt Count 180 X10^3/uL (150.0-450.0) 11/06/23 04:10 MPV 8.7 fL (7.4-11.0) 11/06/23 04:10 Neut % (Auto) 70.8 % (42.0-75.0) 11/06/23 04:10 Lymph % (Auto) 18.3 % (21.0-51.0) L 11/06/23 04:10 [place] % (Auto) 6.9 % (0.0-13.0) 11/06/23 04:10 Eos % (Auto) 3.6 % (0.9-2.9) H 11/06/23 04:10 Baso % (Auto) 0.4 % (0.2-1.0) 11/06/23 04:10 Neut # (Auto) 5.9 x10^3/uL (2.2-4.8) H 11/06/23 04:10 Lymph # (Auto) 1.5 X10^3/uL (1.3-2.9) 11/06/23 04:10 [place] # (Auto) 0.6 x10^3/uL (0.3-0.8) 11/06/23 04:10 Eos # (Auto) 0.3 x10^3/uL (0.0-0.2) H 11/06/23 04:10 Baso # (Auto) 0.0 X10^3/uL (0.0-0.1) 11/06/23 04:10 Absolute Nucleated RBC 0.0 /100WBC 11/06/23 04:10 Sodium 142 mmol/L (136-145) 11/06/23 04:10 Corrected Sodium 142 mmol/L (136-145) 11/06/23 04:10 Potassium 3.9 mmol/L (3.5-5.1) 11/06/23 04:10 Chloride 110 mmol/L (98-107) H 11/06/23 04:10 Carbon Dioxide 22.6 mmol/L (21-32) 11/06/23 04:10 BUN 8 mg/dL (7-18) 11/06/23 04:10 Creatinine 0.84 mg/dL (0.70-1.30) 11/06/23 04:10 Est GFR (MDRD) Af Amer > 60 (>60) 11/06/23 04:10 Est GFR (MDRD) Non-Af > 60 (>60) 11/06/23 04:10 Glucose 116 mg/dL (65-99) H 11/06/23 04:10 Lactic Acid 1.5 mmol/L (0.4-2.0) 11/04/23 15:00 Calcium 8.0 mg/dL (8.5-10.1) L 11/06/23 04:10 Corrected Calcium 9.4 mg/dL (8.5-10.1) 11/06/23 04:10 Magnesium 2.2 mg/dL (2.0-2.9) 11/05/23 06:02 Total Bilirubin 0.30 mg/dL (0.2-1.0) 11/06/23 04:10 AST 21 Units/L (15-37) 11/06/23 04:10 ALT 32 Units/L (12-78) 11/06/23 04:10 Alkaline Phosphatase 81 Units/L (46-116) 11/06/23 04:10 Total Protein 5.9 g/dL (6.4-8.2) L 11/06/23 04:10 Albumin 2.3 g/dL (3.4-5.0) L 11/06/23 04:10 Globulin 3.6 g/dL (2.5-4.5) 11/06/23 04:10 Albumin/Globulin Ratio 0.6 Ratio (1.1-2.1) L 11/06/23 04:10 Vancomycin Trough 7.4 ug/mL (15-20) L 11/05/23 20:38 Plan (1) Cellulitis of right lower extremity: Status: Acute Plan: IV antibiotics (2) Abscess of knee, right: Status: Acute
[2023-11-07 05:06] LABS: BASOPHILS % (AUTO) 0.6 % (0.2-1.0); EOSINOPHILS # (AUTO) 0.2 x10^3/uL (0.0-0.2); EOSINOPHILS % (AUTO) 2.6 % (0.9-2.9); HEMATOCRIT 39.5 % (42.0-54.0); HEMOGLOBIN 13.4 g/dL (13.5-18.0); LYMPHOCYTES # (AUTO) 1.4 X10^3/uL (1.3-2.9); LYMPHOCYTES % (AUTO) 18.6 % (21.0-51.0); MEAN CORPUSCULAR HEMOGLOBIN 28.6 pg (27.0-34.0); MEAN CORPUSCULAR HGB CONC 33.8 g/dL (33.0-35.0); MEAN CORPUSCULAR VOLUME 84.7 fL (80.0-100.0); MEAN PLATELET VOLUME 8.6 fL (7.4-11.0); MONOCYTES # (AUTO) 0.5 x10^3/uL (0.3-0.8); MONOCYTES % (AUTO) 6.3 % (0.0-13.0); NEUTROPHILS # (AUTO) 5.3 x10^3/uL (2.2-4.8); NEUTROPHILS % (AUTO) 71.9 % (42.0-75.0); PLATELET COUNT 241 X10^3/uL (150.0-450.0); RED BLOOD COUNT 4.67 X10^6/uL (4.7-6.0); RED CELL DISTRIBUTION WIDTH 13.3 % (11.6-16.5); WHITE BLOOD COUNT 7.4 X10^3/uL (3.6-10.0)
[2023-11-07 05:22] LABS: ALANINE AMINOTRANSFERASE 61 Units/L (12-78); ALBUMIN 2.8 g/dL (3.4-5.0); ALKALINE PHOSPHATASE 95 Units/L (46-116); ASPARTATE AMINO TRANSFERASE 38 Units/L (15-37); BLOOD UREA NITROGEN 5 mg/dL (7-18); CALCIUM 8.5 mg/dL (8.5-10.1); CARBON DIOXIDE 24.7 mmol/L (21-32); CHLORIDE 108 mmol/L (98-107); COR CA(FOR HYPOALB) 9.5 mg/dL (8.5-10.1); COR NA(FOR HYPERGLY) 142 mmol/L (136-145); CREATININE 0.76 mg/dL (0.70-1.30); GLUCOSE 123 mg/dL (65-99); POTASSIUM 3.7 mmol/L (3.5-5.1); SODIUM 141 mmol/L (136-145); TOTAL PROTEIN 6.7 g/dL (6.4-8.2); eGFR NON BLACK RACES > 60 (>60)
[2023-11-07] MEDS ORDERED: CONSULT PHARMACY - POTASSIUM & MAGNESIUM XX SCH ×3 (06:00)
[2023-11-07] MEDS: K-DUR TAB 20 MEQ PO SCH (09:25)
[2023-11-07 10:13] LABS: CREATININE 0.88 mg/dL (0.70-1.30); VANCOMYCIN,TROUGH 9.2 ug/mL (15-20)
--- NOTE | 2023-11-07 11:40 | PCM.PROG ---
Progress Note Progress Note for Day of Date of Exam: 11/07/23 Subjective Subjective: Patient seen at bedside, no acute events overnight. He is feeling better. He was able to ambulate in the room, denies pain. He is admitted for right knee abscess/cellulitis. Dr Qureshi did I&D yesterday. His wound Cx is growing MRSA. He is currently on Vancomycin. His knee swelling and redness has improved, still having drainage. Labs/imaging reviewed -WBC 7.4 glucose 123 Plan: Continue Vancomycin. Continue pain control. Follow surgery recommendations, dressing changes as per surgery. Keep leg elevated. Monitor AM labs/imaging. Past Medical Family Social History Past Med/Fam/Surg Hx: No changes since H&P Allergies: Allergies No Known Drug Allergies Allergy (Verified 11/03/23 10:24) Vital Signs and I&O's Vital Signs: Vital Signs Temperature 99.3 F Temperature 98.1 F Pulse Rate [Left Brachial] 100 Pulse Rate [Left Brachial] 90 Respiratory Rate 20 Respiratory Rate 20 Respiratory Rate 20 Respiratory Rate 20 Respiratory Rate 17 Blood Pressure [Left Arm] 138/84 Blood Pressure [Left Arm] 131/63 O2 Sat by Pulse Oximetry 100 O2 Sat by Pulse Oximetry 95 Intake and Output: Intake & Output 11/04/23 11/05/23 11/06/23 11/07/23 23:59 23:59 23:59 23:59 Intake Total 2215 / 2215 2690 / 2690 2513 / 2513 910 / 910 Balance 2215 / 2215 2690 / 2690 2513 / 2513 910 / 910 Physical Exam Oriented: Normal Eyes: Normal Ear: Normal Nose: Normal Throat: Normal Respiratory: Normal Cardiovascular: Normal Auscultation: Bowel Sounds: Normal Tenderness: Normal Skin: Other (still having purulent drainage and erythema RT knee ..normal ROM RT knee .) Musculoskeletal: Normal Psychiatric: Normal Mood Description: Calm and Appropriate Affect: Normal Speech Pattern: Clear and Appropriate Laboratory and Diagnostics 11/07/23 04:13 11/07/23 09:31 Labs: 11/04/23 17:10 Knee - Right Wound Gram Stain - Final 11/04/23 17:10 Knee - Right Wound Culture - Final Methicillin Resis Staph Aureus 11/04/23 13:10 Blood Blood Culture - Preliminary 11/04/23 13:00 Blood Blood Culture - Preliminary Laboratory WBC 7.4 X10^3/uL (3.6-10.0) 11/07/23 04:13 RBC 4.67 X10^6/uL (4.7-6.0) L 11/07/23 04:13 Hgb 13.4 g/dL (13.5-18.0) L 11/07/23 04:13 Hct 39.5 % (42.0-54.0) L 11/07/23 04:13 MCV 84.7 fL (80.0-100.0) 11/07/23 04:13 MCH 28.6 pg (27.0-34.0) 11/07/23 04:13 MCHC 33.8 g/dL (33.0-35.0) 11/07/23 04:13 RDW 13.3 % (11.6-16.5) 11/07/23 04:13 Plt Count 241 X10^3/uL (150.0-450.0) 11/07/23 04:13 MPV 8.6 fL (7.4-11.0) 11/07/23 04:13 Neut % (Auto) 71.9 % (42.0-75.0) 11/07/23 04:13 Lymph % (Auto) 18.6 % (21.0-51.0) L 11/07/23 04:13 [place] % (Auto) 6.3 % (0.0-13.0) 11/07/23 04:13 Eos % (Auto) 2.6 % (0.9-2.9) 11/07/23 04:13 Baso % (Auto) 0.6 % (0.2-1.0) 11/07/23 04:13 Neut # (Auto) 5.3 x10^3/uL (2.2-4.8) H 11/07/23 04:13 Lymph # (Auto) 1.4 X10^3/uL (1.3-2.9) 11/07/23 04:13 [place] # (Auto) 0.5 x10^3/uL (0.3-0.8) 11/07/23 04:13 Eos # (Auto) 0.2 x10^3/uL (0.0-0.2) 11/07/23 04:13 Baso # (Auto) 0.0 X10^3/uL (0.0-0.1) 11/07/23 04:13 Absolute Nucleated RBC 0.1 /100WBC 11/07/23 04:13 Sodium 141 mmol/L (136-145) 11/07/23 04:13 Corrected Sodium 142 mmol/L (136-145) 11/07/23 04:13 Potassium 3.7 mmol/L (3.5-5.1) 11/07/23 04:13 Chloride 108 mmol/L (98-107) H 11/07/23 04:13 Carbon Dioxide 24.7 mmol/L (21-32) 11/07/23 04:13 BUN 5 mg/dL (7-18) L 11/07/23 04:13 Creatinine 0.88 mg/dL (0.70-1.30) 11/07/23 09:31 Est GFR (MDRD) Af Amer > 60 (>60) 11/07/23 04:13 Est GFR (MDRD) Non-Af > 60 (>60) 11/07/23 04:13 Glucose 123 mg/dL (65-99) H 11/07/23 04:13 Lactic Acid 1.5 mmol/L (0.4-2.0) 11/04/23 15:00 Calcium 8.5 mg/dL (8.5-10.1) 11/07/23 04:13 Corrected Calcium 9.5 mg/dL (8.5-10.1) 11/07/23 04:13 Magnesium 2.2 mg/dL (2.0-2.9) 11/05/23 06:02 Total Bilirubin 0.30 mg/dL (0.2-1.0) 11/07/23 04:13 AST 38 Units/L (15-37) H 11/07/23 04:13 ALT 61 Units/L (12-78) 11/07/23 04:13 Alkaline Phosphatase 95 Units/L (46-116) 11/07/23 04:13 Total Protein 6.7 g/dL (6.4-8.2) 11/07/23 04:13 Albumin 2.8 g/dL (3.4-5.0) L 11/07/23 04:13 Globulin 3.9 g/dL (2.5-4.5) 11/07/23 04:13 Albumin/Globulin Ratio 0.7 Ratio (1.1-2.1) L 11/07/23 04:13 Vancomycin Trough 9.2 ug/mL (15-20) L 11/07/23 09:31 Plan (1) Cellulitis of right lower extremity: Status: Acute Plan: IV antibiotics (2) Abscess of knee, right: Status: Acute (3) MRSA cellulitis: Status: Acute
[2023-11-08 04:46] LABS: BASOPHILS # (AUTO) 0.1 X10^3/uL (0.0-0.1); BASOPHILS % (AUTO) 0.8 % (0.2-1.0); EOSINOPHILS # (AUTO) 0.3 x10^3/uL (0.0-0.2); EOSINOPHILS % (AUTO) 4.2 % (0.9-2.9); HEMOGLOBIN 12.8 g/dL (13.5-18.0); LYMPHOCYTES # (AUTO) 1.7 X10^3/uL (1.3-2.9); LYMPHOCYTES % (AUTO) 25.9 % (21.0-51.0); MEAN CORPUSCULAR HEMOGLOBIN 28.5 pg (27.0-34.0); MEAN CORPUSCULAR HGB CONC 33.6 g/dL (33.0-35.0); MEAN CORPUSCULAR VOLUME 84.7 fL (80.0-100.0); MEAN PLATELET VOLUME 8.2 fL (7.4-11.0); MONOCYTES # (AUTO) 0.5 x10^3/uL (0.3-0.8); MONOCYTES % (AUTO) 8.4 % (0.0-13.0); NEUTROPHILS % (AUTO) 60.7 % (42.0-75.0); PLATELET COUNT 235 X10^3/uL (150.0-450.0); RED BLOOD COUNT 4.49 X10^6/uL (4.7-6.0); RED CELL DISTRIBUTION WIDTH 13.4 % (11.6-16.5); WHITE BLOOD COUNT 6.5 X10^3/uL (3.6-10.0)
[2023-11-08 04:57] LABS: ALANINE AMINOTRANSFERASE 67 Units/L (12-78); ALBUMIN 2.5 g/dL (3.4-5.0); ALKALINE PHOSPHATASE 83 Units/L (46-116); ASPARTATE AMINO TRANSFERASE 25 Units/L (15-37); BLOOD UREA NITROGEN 8 mg/dL (7-18); CALCIUM 8.3 mg/dL (8.5-10.1); CARBON DIOXIDE 26.7 mmol/L (21-32); CHLORIDE 108 mmol/L (98-107); COR CA(FOR HYPOALB) 9.5 mg/dL (8.5-10.1); CREATININE 0.78 mg/dL (0.70-1.30); GLUCOSE 107 mg/dL (65-99); POTASSIUM 3.8 mmol/L (3.5-5.1); SODIUM 142 mmol/L (136-145); TOTAL PROTEIN 6.1 g/dL (6.4-8.2); eGFR NON BLACK RACES > 60 (>60)
[2023-11-08] MEDS ORDERED: CONSULT PHARMACY - POTASSIUM & MAGNESIUM XX SCH (06:00)
[2023-11-08 08:10] VITALS: BP 141/76; PULSE 83; RESP 18; TEMP 96.9; O2SAT 99
[2023-11-08] MEDS: K-DUR TAB 20 MEQ PO SCH (09:03)
== END 2023-11-08 11:10 | disposition home or self-care (01) | DRG 603 ==
LOC: ER 12:25 → MED/SURG 14:35
PROVIDERS: ADMIT Family Medicine; ATTEND Family Medicine
DX: L02.415 Cutaneous abscess of right lower limb; L03.115 Cellulitis of right lower limb; B95.62 Methicillin resistant Staphylococcus aureus infection as the cause of diseases classified elsewhere; S80.261A Insect bite (nonvenomous), right knee, initial encounter; W57.XXXA Bitten or stung by nonvenomous insect and other nonvenomous arthropods, initial encounter; Y92.9 Unspecified place or not applicable